=== PATIENT | male | born 1970 | race Caucasian/White ===

== ENCOUNTER 2023-02-16 16:45 | Emergency (ER) | payer BC ==
[2023-02-16 16:53] VITALS: BMI 40.1
[2023-02-16] MEDS ORDERED: MAG HYDROX/AL HYDROX/SIMETH 30 ML UNIT-DOSE CUP PO ONE (18:18)
[2023-02-16] MEDS ORDERED: ACETAMINOPHEN 1000 MG/100 ML BAG IVPB ONE (18:18)
[2023-02-16] MEDS ORDERED: FAMOTIDINE 20 MG/50 ML IVPB 20 MG/50 ML MG IVPB ONE ×2 (18:18→18:31)
[2023-02-16] MEDS ORDERED: ACETAMINOPHEN INJECTION 100 ML IVPB ONE (18:30)
[2023-02-16] MEDS ORDERED: MAG HYDROX/AL HYDROX/SIMETH 30 ML UNIT-DOSE CUP ONE (18:31)
[2023-02-16 18:39] LABS: POTASSIUM 4.1 mmol/L (3.5-5.1)
[2023-02-16 18:41] LABS: CALCIUM 8.5 mg/dL (8.5-10.1)
[2023-02-16 18:42] LABS: ALBUMIN 3.7 g/dl (3.4-5.0); BLOOD UREA NITROGEN 14.7 mg/dL (7-18)
[2023-02-16 18:43] LABS: INR 1.02 (0.83-1.09); PROTHROMBIN TIME (PATIENT) 11.8 SEC (9.7-13.0)
[2023-02-16 18:46] LABS: ACTIVATED PTT 39.3 SECONDS (25.2-36.5); TOT PROT 7.1 g/dl (6.4-8.2)
[2023-02-16 18:47] LABS: BILIRUBIN,TOTAL 0.4 mg/dL (0.2-1)
[2023-02-16 19:29] LABS: BASO % 0.7 % (0-2.0); EOS % 0.8 % (0-4.5); HEMOGLOBIN 15.5 GM/dL (11.7-16.9); LYMPH % 20.3 % (8-40); MCH 29.5 pg (25.7-33.7); MCHC 34.4 g/dl (32.0-35.9); MEAN CELL VOLUME 85.8 fl (80-96); MEAN PLT VOLUME 8.7 fl (7.5-11.1); MONO % 8.6 % (3.8-10.2); NEUT % 69.6 % (42.8-82.8); PLATELET COUNT 231 10^3/uL (134-434); RBC 5.24 M/mm3 (4.00-5.60); WHITE BLOOD COUNT 7.3 K/mm3 (4.0-10.0)
[2023-02-16 22:04] VITALS: BP 125/71; PULSE 76; RESP 16; TEMP 98.1
== END 2023-02-16 22:19 | disposition home or self-care (01) ==
LOC: JER 16:45
PROC: 3E033GC Introduction of Other Therapeutic Substance into Peripheral Vein, Percutaneous Approach (ICD-10-PCS; principal; 2023-02-16)
PROC: 3E033GC Introduction of Other Therapeutic Substance into Peripheral Vein, Percutaneous Approach (ICD-10-PCS; 2023-02-16)
DX: U07.1 COVID-19 (principal); R07.89 Other chest pain; R06.02 Shortness of breath
CPT/HCPCS: 0241U-QW; 36415; 71045-TC-FY; 80053; 84484; 85025; 85379; 85610; 85730; 93005; 93010; 99285-25